=== PATIENT | male | born 1975 | race Caucasian/White ===

== ENCOUNTER 2019-12-16 13:04 | Inpatient (IN) ==
[2019-12-16] MEDS ORDERED: LASIX IV ONE (13:53)
[2019-12-16] MEDS ORDERED: NICODERM PATCH TD PRN (13:54)
[2019-12-16] MEDS ORDERED: SODIUM CHLORIDE 0.9% 10 ML ONE (14:27)
[2019-12-16] MEDS: SODIUM CHLORIDE 0.9% INJ SCH (14:52)
[2019-12-16] MEDS: PROTONIX IV SCH (14:52)
[2019-12-16] MEDS: LOVENOX SUBQ SCH (14:52)
--- NOTE | 2019-12-16 14:53 | Diag Imaging Result Doc PS360 ---
EXAM: CHEST-2 VIEWS HISTORY: SOB TECHNIQUE: Two views COMPARISON: 09/01/2018 FINDINGS: The lungs are well expanded. The heart is not enlarged. The vessels are not distended. There are no infiltrates. No pleural effusions. There is a granuloma in the left lung base. IMPRESSION: No pneumonia or congestive failure. Electronically signed by Valeriano Gomez 12/16/2019 2:51 PM
[2019-12-16] MEDS ORDERED: MAGNESIUM SULFATE 2 GM/S.W.I. 2 GM/50 ML IVPB IV ONE (15:00)
[2019-12-16 15:04] LABS: BASO# 0.04 X1000 (0.0-0.2); BASO% 0.3 % (0.0-0.8); EOS# 0.06 X1000 (0.0-0.7); EOS% 0.4 % (0.0-10.0); HEMATOCRIT 32.4 % (42.0-52.0); HEMOGLOBIN 10.6 g/dL (14.0-18.0); LYMPH# 0.75 X1000 (1.2-3.4); LYMPH% 5.2 % (20.5-51.1); MCH 38.8 PG (27-31); MCHC 32.7 g/dL (33-37); MCV 118.7 FL (81-99); MONO# 1.12 X1000 (0.11-0.59); MONO% 7.8 % (1.7-9.3); MPV 10.4 FL (7.4-10.4); NEUT# 12.33 X1000 (1.4-6.5); NEUT% 86.3 % (42.2-75.2); PLT 202 X1000 (130-400); RBC 2.73 XMIL (4.7-6.1); RDW 19.6 % (11.5-14.5)
[2019-12-16 15:14] LABS: AGAP 18; BUN 8 mg/dL (8-22); CALCIUM 8.7 mg/dL (8.8-10.2); CHLORIDE 98 mmol/L (98-107); COSMO 285; CREATININE 0.6 mg/dL (0.7-1.2); ESTIMATED GFR > 60; GLUCOSE 164 mg/dL (70-104); MAGNESIUM 1.3 mg/dL (1.5-2.7); POTASSIUM 4.3 mmol/L (3.5-5.1); SODIUM 142 mmol/L (136-145); TCO2 26 mmol/L (25-35)
[2019-12-16 15:19] LABS: CK PROFILE 366 U/L (24-204)
[2019-12-16 15:31] LABS: BANDS 2 % (0-1); LYMPHS 4 % (21-51); MONO 3 % (1-9); SEGS 91 % (42-75)
[2019-12-16 15:32] LABS: LARGE PLATELETS OCCASIONAL
[2019-12-16 15:33] LABS: CK INDEX 1.7 (0.0-2.5); CK-MB 6.37 ng/mL (0.0-5.0)
--- NOTE | 2019-12-16 15:57 | EKG Report ---
Test Performed on : 12/16/2019 3:43:32 PM Test Reason : chest pain Blood Pressure : / mmHG Vent. Rate : 123 BPM Atrial Rate : 123 BPM P-R Int : 122 ms QRS Dur : 080 ms QT Int : 342 ms P-R-T Axes : 047 040 050 degrees QTc Int : 489 ms Sinus tachycardia. Otherwise normal ECG When compared with ECG of 01-SEP-2018 12:30, No significant change was found Confirmed by Elijah JORGENSEN, Bernardino Baum ([id number]) on 12/17/2019 9:08:06 AM
[2019-12-16] MEDS: NEURONTIN PO SCH ×2 (17:42→20:33)
[2019-12-16] MEDS: CYMBALTA PO SCH (20:33)
[2019-12-16] MEDS: DIFLUCAN 100 MG/NS 100 MG/50 ML IVPB IV SCH (20:33)
[2019-12-16] MEDS: COREG PO SCH (20:33)
--- NOTE | 2019-12-17 03:55 | HISTORY AND PHYSICAL ---
CHIEF COMPLAINT: 1. Massive swelling of feet. 2. Hypokalemia. 3. Hypomagnesemia. 4. Newly diagnosed multiple sclerosis. HISTORY OF PRESENT ILLNESS: He is a 44-year-old white gentleman. Since September, he had optic neuritis. He has acute vision loss, color discrimination, afferent pupil defect. Subsequently, MRI of brain showed multiple white matter disease and suspicious for demyelinating disorders like multiple sclerosis. The patient has been referred to Dr. Tse in [place]. Apparently patient was started on 5 days of IV steroids followed by a tapering dose of high dose of prednisone and repeat MRI. Since then, the patient is not doing very well. He continues to have vision problems and not able to ambulate, wheelchair bound. He has massive dependent edema. He was brought in by the family members and he has a lot of neuropathy pain, constipation, incontinence of urine. His potassium was 2.2, and not able to treat as an outpatient. Since he is nonambulatory and massive swelling of feet, he has been hospitalized for the recent onset of multiple sclerosis with optic neuritis. He also had a visual evoked potential done, results are pending and as a result a hospital admission was warranted. D-dimer was slightly elevated. PAST MEDICAL HISTORY: Chronic tobacco abuse, cervicalgia due to bulging disks, history of alcohol hepatitis, COPD, multiple sclerosis, vitamin D deficiency. PAST SURGICAL HISTORY: L5 to S1 fusion, left fourth finger amputation. MEDICATIONS: Potassium 20 mEq 3 times daily, folic acid, prednisone 60 mg daily, Neurontin 100 daily, duloxetine 60 mg daily. ALLERGIES: None known. 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 He is single. Smoking 1 pack a day for many years. No drug abuse. No alcohol abuse. FAMILY HISTORY: Father of multiple myeloma at 66. Mom of lung cancer at 46. HEALTH MAINTENANCE: Last physical exam was done in 2016. Flu vaccine 2019, pneumococcal 13 in 2018. REVIEW OF SYSTEMS: HEENT: Vision problems. No headache, no sore throat, and he has some thrush noted. No neck pain. No goiter. No lymphadenopathy Cardiopulmonary: No chest pain or shortness of breath. Musculoskeletal: Not able to ambulate, swelling of feet and weakness in both legs. Gastrointestinal: Constipation and incontinence of urine. Neurological: Blindness, weakness in both legs. PHYSICAL EXAMINATION: VITAL SIGNS: Temperature is 98 degrees tachycardic. Vitals are stable; 6 feet 4 inches, 190 pounds. HEENT EXAM: Afferent pupil defect, equal reactive to light and TMs are normal. Oral thrush present. NECK: Supple. No lymphadenopathy. JVD is not elevated. CHEST: Bilateral air entry. HEART: Sounds are regular. ABDOMEN: Belly is soft, nontender. RECTAL: Exam deferred. EXTREMITIES: 3+ pedal edema all the way up to the legs and hyperactive reflexes. Motor power 3/5 in both legs. INVESTIGATIONS: White cell count 14, hematocrit 32, MCV 118, platelets 202,000. D-dimer 0.6. SMA 7 is normal. Glucose 164, magnesium 1.3. CK index is negative troponin was normal. ProBNP 578. Chest x-ray; no pneumonia, congestive heart failure or COPD changes. EKG sinus tachycardia. MRI findings revealed a T7 enhancing lesion on the left of midline. MRI of the brain; 25 lesions in the carpus callosal regions and periventricular area. ASSESSMENT AND PLAN: 1. A 44-year-old white male with white matter disease consistent with multiple sclerosis based on Dr. Tse. T7 midline left lesions with blindness and weakness in the legs on IV steroids. 2. Folic acid deficiency on replacement. 3. Oral thrush on Diflucan. 4. Edema, mostly dependent. We will get the venous Dopplers because a positive D-dimer. Continue on Lovenox and IV Lasix. Replace the potassium and magnesium. 5. Chronic tobacco abuse on Nicotrol patches. 6. Gastrointestinal prophylaxis with Protonix. 7. Constipation on lactulose. 8. We will check the bladder scan. Physical therapy consult. He is extremely tachycardic from withdrawals so we will use Coreg 3.125 p.o. b.i.d. 9. Vitamin D deficiency, on replacement therapy. 10. He needs to be on duloxetine for depression and chronic pain and gabapentin for neuropathy pain. 11. Will follow up and will discuss with Dr. Tse. cc: Yariel Carlisle MD
[2019-12-17] MEDS: LACTULOSE PO SCH (08:20)
[2019-12-17] MEDS: NEURONTIN PO SCH ×3 (08:21→20:41)
[2019-12-17] MEDS: MIRALAX PO SCH (08:21)
[2019-12-17] MEDS: FOLIC ACID PO SCH (08:21)
[2019-12-17] MEDS: SOLU-MEDROL IV SCH (08:21)
[2019-12-17] MEDS: KLOR-CON PO SCH ×3 (08:21→16:56)
[2019-12-17] MEDS: COREG PO SCH ×2 (08:21→20:42)
[2019-12-17] MEDS: VITAMIN D PO SCH (08:22)
[2019-12-17] MEDS ORDERED: LASIX IV SCH (09:00)
--- NOTE | 2019-12-17 11:18 | ECHO REPORT ---
ORDER DATE: 12/16/2019 MEASUREMENTS: Septal thickness 0.9, left ventricular internal diameter in diastole 5.0, posterior wall thickness 0.9, left ventricular internal diameter in systole 3.1, aortic root 3.2, left atrium 4.5. SUMMARY: 1. Technically difficult study due to limited acoustic window quality. 2. The aortic valve is trileaflet and opens normally on 2-dimensional images. The peak gradient across the aortic valve is less than 10 mmHg. Mitral and tricuspid valves are without evidence of structural abnormality, while pulmonic valve is not well demonstrated. There is trace mitral regurgitation and trace tricuspid regurgitation. The aortic root is normal in size. 3. Normal left ventricular dimension is demonstrated. The estimated left ventricular ejection fraction appears to be at least 60%. No obvious regional wall abnormalities can be appreciated. Left atrium is mildly enlarged. The right atrium and right ventricle are normal in size with normal right ventricular systolic function. 4. No pericardial effusion. 5. Appearance of inferior vena cava suggests normal central venous pressure. CONCLUSIONS: 1. Technically difficult study. 2. No significant valvular abnormality evident. 3. Normal left ventricular systolic function, without obvious wall motion abnormality evident. 4. Mild left atrial enlargement. cc: MD Yariel Santacruz MD
[2019-12-17] MEDS: LOVENOX SUBQ SCH (13:06)
[2019-12-17] MEDS: SODIUM CHLORIDE 0.9% INJ SCH (13:06)
[2019-12-17] MEDS: PROTONIX IV SCH (13:06)
[2019-12-17] MEDS: ULTRACET 37.5MG/325MG PO PRN ×2 (14:09→23:54)
[2019-12-17] MEDS: DIFLUCAN 100 MG/NS 100 MG/50 ML IVPB IV SCH (19:53)
--- NOTE | 2019-12-17 19:55 | PROGRESS NOTE ---
DATE: 12/17/2019 SUBJECTIVE: Patient complains of pain. Edema is better. Venous Doppler was done. Echocardiogram was done. He is still not able to see. PHYSICAL EXAMINATION: Vital Signs: Temperature is 98 degrees. Vitals are stable. 94% on room air. His inputs and outputs are negative so far, 4.5 L. HEENT: Within normal limits. Neck: Supple. Chest: Clear. Heart: Sounds are regular. Abdomen: Belly is soft and nontender. Extremities: Decreased edema. ASSESSMENT AND PLAN: 1. Edema. ProBNP is elevated. Echocardiography findings were discussed. Ejection fraction was reported to 60%. No wall motion abnormalities. Continue intravenous Lasix. 2. Positive D-dimer. Follow up on venous Doppler. 3. Constipation, on lactulose. On bladder scan, he is emptying the bladder. No neurogenic bladder findings noted. 4. Acute multiple sclerosis with multiple white matter disease and T6 lesion. Continue intravenous steroids. I tried to reach Dr. Rosa. 5. Tachycardia and hypertension, on Coreg. 6. Tobacco abuse. Quit smoking. 7. Reactive depression, on Cymbalta. 8. Chronic pain. Tramadol and gabapentin. 9. Nicotine abuse, on Nicotrol patch. 10. I am going to check the labs in the morning and agree with physical therapy and will follow up. LEVEL OF DOCUMENTATION: 25 minutes. cc: Yariel Carlisle MD
--- NOTE | 2019-12-17 20:23 | Extremity Venous Study ---
PROCEDURE NAME: Venous U/S Bilateral Legs - 12/17/2019 REFERRING PHYSICIAN: Lyn Carlisle MD READING PHYSICIAN: Jerry Mcclellan MD CUPBOARD BUILDER: Jorge. INDICATION: Leg swelling. FINDINGS: The deep and superficial veins of both lower extremities were imaged throughout their course. They are compressible, patent, and without thrombus. The waveforms appear to be pulsatile. INTERPRETATION: No deep venous thrombosis or superficial venous thrombosis in either lower extremity. There is subcutaneous edema noted and pulsatile waveforms, which may correlate with heart failure if clinically apparent. cc: MD Yariel Thrasher MD
[2019-12-17] MEDS: CYMBALTA PO SCH (20:42)
[2019-12-18] MEDS: ULTRACET 37.5MG/325MG PO PRN ×3 (06:04→18:35)
[2019-12-18 06:54] LABS: BASO# 0.07 X1000 (0.0-0.2); BASO% 0.5 % (0.0-0.8); EOS# 0.03 X1000 (0.0-0.7); EOS% 0.2 % (0.0-10.0); HEMATOCRIT 30.9 % (42.0-52.0); HEMOGLOBIN 10.4 g/dL (14.0-18.0); LYMPH# 1.29 X1000 (1.2-3.4); LYMPH% 9.6 % (20.5-51.1); MCH 40.2 PG (27-31); MCHC 33.7 g/dL (33-37); MCV 119.3 FL (81-99); MONO# 0.46 X1000 (0.11-0.59); MONO% 3.4 % (1.7-9.3); MPV 11.1 FL (7.4-10.4); NEUT# 11.53 X1000 (1.4-6.5); NEUT% 86.3 % (42.2-75.2); PLT 160 X1000 (130-400); RBC 2.59 XMIL (4.7-6.1); RDW 17.2 % (11.5-14.5); WBC 13.38 X1000 (4.8-10.8)
[2019-12-18 07:24] LABS: AGAP 12; BUN 10 mg/dL (8-22); CALCIUM 8.5 mg/dL (8.8-10.2); CHLORIDE 97 mmol/L (98-107); COSMO 267; CREATININE 0.5 mg/dL (0.7-1.2); ESTIMATED GFR > 60; GLUCOSE 98 mg/dL (70-104); MAGNESIUM 1.9 mg/dL (1.5-2.7); POTASSIUM 4.8 mmol/L (3.5-5.1); SODIUM 134 mmol/L (136-145); TCO2 25 mmol/L (25-35)
[2019-12-18] MEDS ORDERED: DIPHTHERIA/TETANUS ADULT IM ONE (08:10)
[2019-12-18] MEDS: COREG PO SCH ×2 (08:15→20:29)
[2019-12-18] MEDS: NEURONTIN PO SCH ×3 (08:16→20:29)
[2019-12-18] MEDS: FOLIC ACID PO SCH (08:16)
[2019-12-18] MEDS: SOLU-MEDROL IV SCH (08:16)
[2019-12-18] MEDS: KLOR-CON PO SCH ×3 (08:16→17:51)
[2019-12-18] MEDS: LACTULOSE PO SCH (08:16)
[2019-12-18] MEDS: VITAMIN D PO SCH (08:16)
[2019-12-18] MEDS: MIRALAX PO SCH (08:17)
[2019-12-18] MEDS: LASIX PO SCH (10:47)
[2019-12-18] MEDS: LOVENOX SUBQ SCH (14:57)
[2019-12-18] MEDS: PROTONIX IV SCH (14:57)
[2019-12-18] MEDS: SODIUM CHLORIDE 0.9% INJ SCH (14:57)
--- NOTE | 2019-12-18 19:33 | PROGRESS NOTE ---
DATE: 12/18/2019 SUBJECTIVE: The patient is getting better. Not able to reach Dr. Tse. Edema is much improved. OBJECTIVE: On exam, temperature is 97 degrees. Vital signs are stable. Chest is clear. Heart sounds are regular. Belly is soft, nontender. No edema noted. DIAGNOSTIC DATA: Venous Doppler was negative for DVT. LABORATORY DATA: CBC: White cell count 13, hematocrit 30, MCV is high, platelets 160,000. SMA 7 is normal. Potassium and magnesium were normal. ASSESSMENT AND PLAN: 1. Edema, dependent. Much improved. Change the Lasix 20 mg daily. 2. Follow up on electrolytes, normal. 3. Vitamin D, continue replacement. 4. Diflucan is improving oral thrush. 5. Deep venous thrombosis and gastrointestinal prophylaxis. 6. Continue intravenous steroids for multiple sclerosis. We will discharge in the morning. Follow up with Dr. Tse next week. Apparently he did receive intravenous immunoglobulin therapy for 5 days. Level of documentation is 25 minutes. cc: Yariel Carlisle MD
[2019-12-18] MEDS: CYMBALTA PO SCH (20:29)
[2019-12-18] MEDS: DIFLUCAN 100 MG/NS 100 MG/50 ML IVPB IV SCH (20:29)
[2019-12-19] MEDS: ULTRACET 37.5MG/325MG PO PRN (06:42)
[2019-12-19 07:22] VITALS: BP 147/100
[2019-12-19] MEDS: NEURONTIN PO SCH (08:01)
[2019-12-19] MEDS: FOLIC ACID PO SCH (08:02)
[2019-12-19] MEDS: LACTULOSE PO SCH (08:02)
[2019-12-19] MEDS: SOLU-MEDROL IV SCH (08:02)
[2019-12-19] MEDS: LASIX PO SCH (08:03)
[2019-12-19] MEDS: MIRALAX PO SCH ×2 (08:03→08:13)
[2019-12-19] MEDS: COREG PO SCH (08:03)
[2019-12-19] MEDS: KLOR-CON PO SCH (08:03)
[2019-12-19] MEDS: VITAMIN D PO SCH (08:04)
[2019-12-19] MEDS ORDERED: BACTROBAN OINTMENT TOP SCH (09:00)
--- NOTE | 2019-12-19 18:27 | DISCHARGE SUMMARY ---
ADMISSION DATE: 12/16/2019 DISCHARGE DATE: 12/19/2019 DISCHARGING DIAGNOSIS: Bilateral edema with multiple abrasions due to dependent edema. SECONDARY DIAGNOSES: 1. Multiple sclerosis with white matter disease with lesions, multiple, on MRI and T7 left of the midline. 2. Chronic tobacco abuse. 3. Chronic obstructive pulmonary disease. 4. Vitamin D deficiency. 5. Chronic back pain. BRIEF HISTORY: Please see the H and P that was done on 12/16/2019. In brief, he is a 44-year-old gentleman basically admitted to the hospital with inability to ambulate, associated with 4+ pedal edema. Recently he has been diagnosed with multiple sclerosis in September. He has been receiving treatment by Dr. Tse with IV gammaglobulin and high dose steroids and taper dose. He also has significant hypokalemia and hypomagnesemia. He has been taking Lasix for dependent edema. Unfortunately, he has not been able to ambulate as well as not being able to see because of ongoing optic neuritis and a T7 lesion on the left of the midline. HOSPITAL COURSE: He was given Nicotrol patches to quit smoking. Potassium and magnesium were replaced. He was given IV Lasix. Subsequently, the edema was much improved. He had multiple abrasions on the left leg. Continued Bactroban. No signs of infection noted. Tetanus toxoid was given. As a part of the edema of the legs, venous Doppler was negative for DVT. Cardiac workup was negative. He was continued on IV steroids. As a part of this MS, the patient has been depressed with chronic pain. Started on Cymbalta, gabapentin and Ultracet. LABORATORY DATA: CBC: White cell count 13, hematocrit 31, MCV 119, platelet count 160. Sodium 134, potassium 4.8, chloride 9.7, BUN 10, creatinine 0.5, magnesium 1.9. Troponin T is normal. ProBNP 578. D-dimer 0.66. EKG: Normal sinus nothing acute. Extremity venous studies: No evidence of DVT. Chest x-ray: Stable with COPD changes next. Echocardiography report: LV function is reported at 60%. No significant valvular heart disease seen. DISCHARGE INSTRUCTIONS: 1. Quit smoking. 2. Pneumococcal 13 was given 07/28/2018. Tetanus toxoid was given on 12/18/2019. DISCHARGE MEDICATIONS: Lactulose 30 mL p.o. daily, folic acid 1 mg daily, prednisone 40 mg daily, potassium 20 mEq t.i.d., duloxetine 60 daily, Neurontin 100 p.o. t.i.d., Ultracet 1 tablet every 6 hours p.r.n. pain, MiraLAX 17 g eliceo daily, vitamin D3, 800 units daily, vitamin B12 1000 mcg daily. FOLLOWUP: Follow up with Dr. Tse for chronic multiple sclerosis, remitting relapsing disease. Follow up in my office in 10 days. cc: MD Ron Waldron MD
== END 2019-12-19 09:29 | disposition home or self-care (01) | DRG 948 ==
LOC: DIRADM 13:04 → 4N 14:06
PROVIDERS: ADMIT Internal Medicine; ATTEND Internal Medicine